=== PATIENT | female | born 1995 | race African-American/Black ===

== ENCOUNTER 2019-09-01 21:13 | Emergency (ER) | payer MEDICAID ==
[~2019-09-01] VITALS: Ht 170.2 cm; Wt 118.0 kg
[2019-09-01 22:52] VITALS: BP 123/69
== END 2019-09-01 22:52 | disposition home or self-care (01) ==
LOC: ER 21:13
DX: L02.415 Cutaneous abscess of right lower limb (principal)
CPT/HCPCS: 99283